=== PATIENT | female | born 1970 | race Two or more races ===

== ENCOUNTER 2017-03-22 17:20 | Emergency (ER) | payer OTHER ==
[~2017-03-22] VITALS: Ht 162.6 cm; Wt 56.7 kg
--- NOTE | 2017-03-22 17:25 | NUR ---
GASTRIC PAIN, NAUSEA, VOMITING x 3 WEEKS WORSE TODAY PERIUMBILICAL PAIN
[2017-03-22] MEDS ORDERED: ONDANSETRON 4 MG TAB.RAPDIS ONE (17:50)
[2017-03-22] MEDS ORDERED: KETOROLAC TROMETHAMINE INJ 60 MG/2 ML VIAL IM ONE (17:50)
[2017-03-22] MEDS ORDERED: TRAMADOL HCL 50 MG TABLET ONE (17:52)
[2017-03-22 17:56] LABS: APPEARANCE,URINE Clear (CLEAR); BILIRUBIN,URINE Negative (NEGATIVE); BLOOD, URINE Trace-lysed Ery/uL (NEGATIVE); COLOR,URINE Yellow (YELLOW); KETONES,URINE Negative (NEGATIVE); LEUKOCYTE ESTERASE ,URINE Negative (NEGATIVE); NITRITE, URINE Negative (NEGATIVE); PROTEIN,URINE Negative (NEGATIVE); UGLUCOSE Negative (NEGATIVE); UROBILINOGEN,URINE 0.2 EU/dL (0.2)
[2017-03-22] MEDS ORDERED: TRAMADOL HCL 50 MG TABLET PO ONE (18:00)
[2017-03-22] MEDS ORDERED: ONDANSETRON 4 MG TAB.RAPDIS SL ONE (18:00)
[2017-03-22] MEDS ORDERED: ACETAMINOPHEN ES 500 MG TABLET ONE (18:00)
[2017-03-22] MEDS ORDERED: ACETAMINOPHEN 325 MG TABLET PO ONE (18:00)
--- NOTE | 2017-03-22 18:00 | NUR ---
Pt refused PO Tramadol, PA informed. Ok to give Tylenol 1000 mg po x1. Pt updated.
[2017-03-22 18:03] LABS: BASOPHILS % (AUTO) 0.7 % (0.0-2.0); EOSINOPHILS # (AUTO) 0.1 /CMM (0.0-0.7); EOSINOPHILS % (AUTO) 1.2 % (0.0-6.0); HEMATOCRIT 44 % (33-45); HEMOGLOBIN 14.9 g/dL (11.5-14.8); LYMPHOCYTES # (AUTO) 2.5 /CMM (0.8-4.8); LYMPHOCYTES % (AUTO) 36.2 % (20.0-44.0); MEAN CORPUSCULAR HEMOGLOBIN 29 PG (26.0-33.0); MEAN CORPUSCULAR HGB CONC 34 g/dl (31.0-36.0); MEAN CORPUSCULAR VOLUME 87 fL (82-100); MONOCYTES # (AUTO) 0.5 /CMM (0.1-1.30); MONOCYTES % (AUTO) 7.3 % (2.0-12.0); NEUTROPHILS # (AUTO) 3.7 /CMM (1.8-8.9); NEUTROPHILS % (AUTO) 54.6 % (43.0-81.0); PLATELET COUNT (AUTO) 304 /CMM (150-450); RDW COEFFICIENT OF VARIATION 12.3 (11.5-15.0); RED BLOOD CELL COUNT(AUTO) 5.08 MIL/uL (4.0-5.2); WHITE BLOOD COUNT (AUTO) 6.8 K/uL (4.3-11.0)
[2017-03-22 18:05] LABS: CALCIUM, SERUM 8.8 mg/dL (8.5-10.1); CREATININE 0.6 mg/dL (0.6-1.3); POTASSIUM 3.8 mmol/L (3.5-5.1)
[2017-03-22 18:11] LABS: BILIRUBIN,DIRECT 0.1 mg/dL (0.0-0.2); BILIRUBIN,TOTAL 0.3 mg/dL (0.2-1.0); TOTAL PROTEIN, SERUM 7.6 g/dL (6.4-8.2)
--- NOTE | 2017-03-22 18:11 | NUR ---
PT TAKEN TO XRAY
[2017-03-22 18:19] LABS: BACTERIA,URINE Rare /HPF (None Seen); RBC,URINE 0-2 /HPF (0-2); SQUAMOUS EPITHELIAL CELL,UR Few /HPF (None Seen); WBC,URINE NONE SEEN /HPF (0-3)
--- NOTE | 2017-03-22 18:54 | NUR ---
Patient discharged to home in stable condition. Written and verbal after care instructions given. Patient verbalizes understanding of instruction.
[2017-03-22 18:55] VITALS: BP 130/80
== END 2017-03-22 19:03 | disposition home or self-care (01) ==
LOC: ER 17:23
DX: K29.00 Acute gastritis without bleeding (principal); K59.00 Constipation, unspecified; R11.2 Nausea with vomiting, unspecified; F10.10 Alcohol abuse, uncomplicated
CPT/HCPCS: 36415; 74000-TC; 80048-TC; 80076-TC; 81000-TC; 83690-TC; 84703-TC; 85025-TC; A4606; J1885; Q0162; Z7610

== ENCOUNTER 2018-11-29 18:39 | Emergency (ER) | payer SELFPAY ==
--- NOTE | 2018-11-29 19:08 | NUR ---
CALLED IN [facility], NO ANSWER.
--- NOTE | 2018-11-29 19:31 | NUR ---
CALLED IN [facility], NO ANSWER.
--- NOTE | 2018-11-29 19:54 | NUR ---
PATIENT NOT IN THE WR.
== END 2018-11-29 19:55 | disposition left against medical advice (07) ==
LOC: ER 18:42
DX: Z53.21 Procedure and treatment not carried out due to patient leaving prior to being seen by health care provider (principal)

== ENCOUNTER 2019-01-07 20:58 | Emergency (ER) | payer OTHER ==
[~2019-01-07] VITALS: Ht 162.6 cm; Wt 59.0 kg
--- NOTE | 2019-01-07 21:48 | NUR ---
BIBS FOR C/O ABD PAIN X 2 MOS.,+N/V. LMP: 2 MONTHS AGO. LBM: YESTERDAY.
[2019-01-07] MEDS ORDERED: ONDANSETRON HCL/PF 4 MG/2 ML VIAL ONE (22:30)
[2019-01-07] MEDS ORDERED: ONDANSETRON HCL/PF 4 MG/2 ML VIAL IVP ONE (22:30)
[2019-01-07] MEDS ORDERED: IV NS 0.9% 1,000 ML BAG IV ONE (22:30)
[2019-01-07] MEDS ORDERED: KETOROLAC TROMETHAMINE INJ 30 MG/ML VIAL IV ONE (22:30)
[2019-01-07] MEDS ORDERED: KETOROLAC TROMETHAMINE INJ 30 MG/ML VIAL ONE (22:30)
--- NOTE | 2019-01-07 22:40 | NUR ---
PT LEFT FOR CT
[2019-01-07] MEDS ORDERED: ALPRAZOLAM 0.5 MG TABLET ONE (22:57)
[2019-01-07 22:58] LABS: APPEARANCE,URINE Clear (CLEAR); BILIRUBIN,URINE Negative (NEGATIVE); BLOOD, URINE Negative Ery/uL (NEGATIVE); COLOR,URINE Yellow (YELLOW); KETONES,URINE Negative (NEGATIVE); LEUKOCYTE ESTERASE ,URINE Negative (NEGATIVE); NITRITE, URINE Negative (NEGATIVE); PROTEIN,URINE Negative (NEGATIVE); UGLUCOSE Negative (NEGATIVE); UROBILINOGEN,URINE 0.2 EU/dL (0.2)
[2019-01-07 22:58] LABS: CALCIUM, SERUM 8.6 mg/dL (8.5-10.1); CREATININE 0.7 mg/dL (0.6-1.3); POTASSIUM 3.8 mmol/L (3.5-5.1)
[2019-01-07] MEDS ORDERED: ALPRAZOLAM 0.5 MG TABLET PO ONE (23:00)
[2019-01-07 23:04] LABS: ALBUMIN 3.6 g/dL (3.4-5.0); BILIRUBIN,DIRECT 0.1 mg/dL (0.0-0.2); BILIRUBIN,TOTAL 0.2 mg/dL (0.2-1.0); TOTAL PROTEIN, SERUM 6.9 g/dL (6.4-8.2)
[2019-01-07 23:06] LABS: BASOPHILS % (AUTO) 0.5 % (0.0-2.0); EOSINOPHILS % (AUTO) 3.8 % (0.0-6.0); HEMATOCRIT 40 % (33-45); HEMOGLOBIN 13.5 g/dL (11.5-14.8); LYMPHOCYTES # (AUTO) 2.7 /CMM (0.8-4.8); LYMPHOCYTES % (AUTO) 41.2 % (20.0-44.0); MEAN CORPUSCULAR HGB CONC 34 g/dl (31.0-36.0); MEAN CORPUSCULAR VOLUME 89 fL (82-100); MONOCYTES # (AUTO) 0.6 /CMM (0.1-1.30); MONOCYTES % (AUTO) 9.5 % (2.0-12.0); NEUTROPHILS # (AUTO) 2.9 /CMM (1.8-8.9); PLATELET COUNT (AUTO) 273 /CMM (150-450); WHITE BLOOD COUNT (AUTO) 6.4 K/uL (4.3-11.0)
--- NOTE | 2019-01-08 00:12 | NUR ---
IV removed. Catheter intact and site benign. Pressure and 4x4 applied to site. No bleeding noted.
--- NOTE | 2019-01-08 00:15 | NUR ---
Patient discharged to home in stable condition. Prescription and Written and verbal after care instructions given. Patient verbalizes understanding of instruction.
[2019-01-08 00:16] VITALS: BP 119/76
== END 2019-01-08 00:17 | disposition home or self-care (01) ==
LOC: ER 20:59
DX: K59.00 Constipation, unspecified (principal); R14.0 Abdominal distension (gaseous); D25.9 Leiomyoma of uterus, unspecified; F17.200 Nicotine dependence, unspecified, uncomplicated
CPT/HCPCS: 36415; 74176; 80048; 80076; 81001; 85025; 96374; 96375; 99284; J1885; J2405; J7030; 81000-TC

== ENCOUNTER 2019-01-26 16:08 | Emergency (ER) | payer OTHER ==
[~2019-01-26] VITALS: Ht 160 cm; Wt 66.7 kg
[2019-01-26 16:27] VITALS: BP 128/76
--- NOTE | 2019-01-26 16:27 | NUR ---
PT AMBULATORY TO ER BED 05 C/O 1 WEEK OF DIFFUSE ABDOMINAL PAIN AND DISTENSION. TODAY NOTICED FRESH BLOOD IN HER BOWEL MOVEMENT TWICE TODAY. PT ALSO C/O WEAKNESS. PLACED ON MONITOR. VSS. AWAITING MD GONZALEZ.
--- NOTE | 2019-01-26 16:46 | NUR ---
DR STONE AT BEDSIDE FOR EVAL.
== END 2019-01-26 17:16 | disposition home or self-care (01) ==
LOC: ER 16:08
DX: K60.2 Anal fissure, unspecified (principal); D25.9 Leiomyoma of uterus, unspecified; K57.90 Diverticulosis of intestine, part unspecified, without perforation or abscess without bleeding; F10.10 Alcohol abuse, uncomplicated; F17.200 Nicotine dependence, unspecified, uncomplicated; Y90.9 Presence of alcohol in blood, level not specified

== ENCOUNTER 2019-05-19 19:01 | Emergency (ER) | payer OTHER ==
[~2019-05-19] VITALS: Ht 160 cm; Wt 66.2 kg
--- NOTE | 2019-05-19 19:36 | NUR ---
BIBS FOR C/O ABD PAIN AND NAUSEA X5 DAYS. -DIARRHEA. -VOMITING. PT REPORTED IRREGULAR MENSTRUAL PERIOD AND NO CHANCE OF .
--- NOTE | 2019-05-19 19:46 | NUR ---
PT LEFT FOR CT
[2019-05-19 19:55] LABS: BASOPHILS % (AUTO) 0.3 % (0.0-2.0); EOSINOPHILS % (AUTO) 1.7 % (0.0-6.0); HEMATOCRIT 40 % (33-45); HEMOGLOBIN 13.3 g/dL (11.5-14.8); LYMPHOCYTES # (AUTO) 1.6 /CMM (0.8-4.8); LYMPHOCYTES % (AUTO) 20.9 % (20.0-44.0); MEAN CORPUSCULAR HGB CONC 33 g/dl (31.0-36.0); MEAN CORPUSCULAR VOLUME 88 fL (82-100); MONOCYTES % (AUTO) 12.7 % (2.0-12.0); NEUTROPHILS % (AUTO) 64.4 % (43.0-81.0); PLATELET COUNT (AUTO) 342 /CMM (150-450); RED BLOOD CELL COUNT(AUTO) 4.54 MIL/uL (4.0-5.2); WHITE BLOOD COUNT (AUTO) 7.7 K/uL (4.3-11.0)
[2019-05-19] MEDS ORDERED: ONDANSETRON HCL/PF 4 MG/2 ML VIAL ONE (19:59)
[2019-05-19] MEDS ORDERED: KETOROLAC TROMETHAMINE INJ 30 MG/ML VIAL ONE (19:59)
[2019-05-19] MEDS ORDERED: KETOROLAC TROMETHAMINE INJ 30 MG/ML VIAL IV ONE (20:00)
[2019-05-19] MEDS ORDERED: ONDANSETRON HCL/PF 4 MG/2 ML VIAL IVP ONE (20:00)
[2019-05-19] MEDS ORDERED: IV NS 0.9% 1,000 ML BAG IV ONE (20:00)
[2019-05-19 20:06] LABS: CALCIUM, SERUM 8.7 mg/dL (8.5-10.1); CREATININE 0.6 mg/dL (0.6-1.3); POTASSIUM 4.1 mmol/L (3.5-5.1)
[2019-05-19 20:07] LABS: APPEARANCE,URINE Clear (CLEAR); BILIRUBIN,URINE Negative (NEGATIVE); BLOOD, URINE Trace-intact Ery/uL (NEGATIVE); COLOR,URINE Yellow (YELLOW); KETONES,URINE Negative (NEGATIVE); LEUKOCYTE ESTERASE ,URINE Negative (NEGATIVE); NITRITE, URINE Negative (NEGATIVE); PH,URINE 8.5 (5.0-8.0); PROTEIN,URINE Negative (NEGATIVE); UGLUCOSE Negative (NEGATIVE); UROBILINOGEN,URINE 0.2 EU/dL (0.2)
[2019-05-19 20:10] LABS: ALBUMIN 3.5 g/dL (3.4-5.0); BILIRUBIN,DIRECT 0.1 mg/dL (0.0-0.2); BILIRUBIN,TOTAL 0.2 mg/dL (0.2-1.0); TOTAL PROTEIN, SERUM 7.5 g/dL (6.4-8.2)
[2019-05-19 20:19] LABS: BACTERIA,URINE Few /HPF (None Seen); SQUAMOUS EPITHELIAL CELL,UR Many /HPF (None Seen); WBC,URINE 0-2 /HPF (0-3)
--- NOTE | 2019-05-19 20:40 | NUR ---
US TECH AT THE BED SIDE
--- NOTE | 2019-05-19 21:15 | NUR ---
LAYING DOWN IN BED REPORTED FEELING BETTER. VSS. WILL CONT TO MONITOR ,
[2019-05-19 21:55] VITALS: BP 121/82
--- NOTE | 2019-05-19 21:55 | NUR ---
Patient discharged to home in stable condition. Written and verbal after care instructions given. Patient verbalizes understanding of instruction.IV removed. Catheter intact and site benign. Pressure and 4x4 applied to site. No bleeding noted.
== END 2019-05-19 21:56 | disposition home or self-care (01) ==
LOC: ER 19:06
DX: N83.292 Other ovarian cyst, left side (principal); F10.10 Alcohol abuse, uncomplicated; Y90.9 Presence of alcohol in blood, level not specified; Z60.2 Problems related to living alone
CPT/HCPCS: 36415; 74176; 76856; 80048; 80076; 81001; 83690; 84703; 85025; 96374; 96375; 99284; J1885; J2405; J7030; 81000-TC

== ENCOUNTER 2019-06-30 00:02 | Emergency (ER) | payer OTHER ==
--- NOTE | 2019-06-30 00:07 | NUR ---
CALLED FOR TRIAGE, NO ANSWER.
--- NOTE | 2019-06-30 00:11 | NUR ---
CALLED FOR TRIAGE, NO ANSWER.
--- NOTE | 2019-06-30 00:16 | NUR ---
CALLED FOR TRIAGE, NO ANSWER.
--- NOTE | 2019-06-30 00:43 | NUR ---
CALLED FOR TRIAGE, NO ANSWER.
== END 2019-06-30 00:43 | disposition home or self-care (01) ==
LOC: ER 00:10
DX: Z53.21 Procedure and treatment not carried out due to patient leaving prior to being seen by health care provider (principal)